=== PATIENT | female | born 1940 | race Caucasian/White ===

== ENCOUNTER 2017-02-11 13:26 | Emergency (ER) | payer MEDICARE, OTHER, MEDICAID ==
[2017-02-11] MEDS ORDERED: Albuterol/Ipratropium 3.0-0.5 MG/3 ML Neb Soln NEB ONE (13:33)
--- NOTE | 2017-02-11 13:35 | EDM.PDOC ---
ED HPI GENERAL MEDICAL PROBLEM - General Chief Complaint: General Stated Complaint: AMBULANCE Time Seen by Provider: 02/11/17 13:30 Source of Information: Reports: Patient, EMS, EMS Notes Reviewed History Limitations: Reports: No Limitations - History of Present Illness INITIAL COMMENTS - FREE TEXT/NARRATIVE: 76 yo white female w/ PMHx. COPD brought by ambulance for SOB and altered mental status Onset: Today Onset Date: 02/11/17 Onset Time: 11:00 Duration: Hour(s): Location: Reports: Chest, Generalized Severity: Moderate Improves with: Reports: None Worsens with: Reports: None Associated Symptoms: Reports: Shortness of Breath Back Pain Score (Numeric/FACES): 3 - Related Data Allergies Allergy/AdvReac Type Severity Reaction Status Date / Time acetaminophen Allergy Cannot Verified 02/11/17 14:16 [From Darvocet-N] Remember codeine Allergy Cannot Verified 02/11/17 14:16 Remember corn Allergy Cannot Verified 02/11/17 14:16 Remember fentanyl Allergy Lightheaded Verified 02/11/17 14:16 ness gabapentin Allergy Cannot Verified 02/11/17 14:16 Remember ibuprofen Allergy Cannot Verified 02/11/17 14:16 Remember levofloxacin [From Levaquin] Allergy Rash Verified 02/11/17 14:16 naproxen Allergy Cannot Verified 02/11/17 14:16 Remember propoxyphene napsylate Allergy Cannot Verified 02/11/17 14:16 [From Darvocet-N] Remember sertraline HCl [From Zoloft] Allergy Cannot Verified 02/11/17 14:16 Remember strawberry Allergy Cannot Verified 02/11/17 14:16 Remember Home Meds: Home Meds Acetaminophen [Tylenol] 650 mg PO Q4H PRN 06/16/14 [History] Bisacodyl [Dulcolax] 10 mg RECTAL DAILY PRN 06/16/14 [History] DULoxetine [Cymbalta] 2 cap PO DAILY 06/16/14 [History] Docusate Sodium [Colace] 200 mg PO BEDTIME 06/16/14 [History] Donepezil HCl [Aricept] 1 tab PO BID 06/16/14 [History] Memantine HCl [Namenda Xr] 28 mg PO BEDTIME 06/16/14 [History] Metoprolol Tartrate 25 mg PO BID 06/16/14 [History] Morphine [MS Contin] 15 mg PO BID 06/16/14 [History] Simethicone 80 mg PO Q6H PRN 06/16/14 [History] buPROPion HCl 100 mg PO DAILY 06/16/14 [History] Furosemide [Lasix] 10 mg PO DAILY 07/04/14 [History] Albuterol/Ipratropium [DuoNeb 3.0-0.5 MG/3 ML] 1 ampule NEB Q4H PRN 05/24/15 [ History] Brinzolamide [Azopt] 1 drop EYEBOTH BID 05/24/15 [History] Dextromethorphan/guaiFENesin [Robitussin Peak Cold DM, Adult] 15 ml PO Q4H PRN 05/24/15 [History] Ferrous Sulfate 1 tab PO DAILY 05/24/15 [History] Calcium Carbonate [Calcium Antacid] 2 tab PO QID 08/09/15 [History] Omeprazole 20 mg PO DAILY 08/09/15 [History] Past Medical History HEENT History: Reports: Cataract, Glaucoma Other HEENT History: CATARACT RIGHT EYE Cardiovascular History: Reports: CAD, Hypertension, Other (See Below) Other Cardiovascular History: DEPENDENT EDEMA; VENOUS INSUFFICENCY PERIPHERAL Respiratory History: Reports: PE, Pneumonia, Recurrent, SOB, Other (See Below) Other Respiratory History: ASPIRATION PNEUMONIA Gastrointestinal History: Reports: Chronic Constipation, Other (See Below) Other Gastrointestinal History: FUNCTIONAL DYPEPSIA Genitourinary History: Reports: None Musculoskeletal History: Reports: Arthritis, Back Pain, Chronic, Other (See Below) Other Musculoskeletal History: CHRONIC R SHOULDER PAIN; POLYARTICULAR ARTHRITIS ; OSTEOMYLITIS L4-5; DISKITIS L4-5; Neurological History: Reports: Alzheimers Disease, Other (See Below) Other Neuro History: DEMENTIA; SEROTONIN SYNDROME; CEREBROVASCULAR DISEASE; INSOMNIA Psychiatric History: Reports: Addiction, Anxiety, Depression, Other (See Below) Other Psychiatric History: OPIATE DEPENDENCE; ADJUSTMENT DISORDER WITH ANXIETY Endocrine/Metabolic History: Reports: None, Osteoporosis Hematologic History: Reports: Anemia, B12 Deficiency, Iron Deficiency Immunologic History: Reports: None Oncologic (Cancer) History: Reports: Breast Dermatologic History: Reports: Cellulitis, Other (See Below) Other Dermatologic History: VENOUS STASIS ULCER - Past Surgical History HEENT Surgical History: Reports: Cataract Surgery, Tonsillectomy Neurological Surgical History: Reports: Lumbar Spine Social & Family History - Tobacco Use Smoking Status *Q: Former Smoker Years of Tobacco use: 21 Used Tobacco, but Quit: Yes Month Tobacco Last Used: 1979 Second Hand Smoke Exposure: No - Alcohol Use Days Per Week of Alcohol Use: 0 - Recreational Drug Use Recreational Drug Use: No - Living Situation & Occupation Living situation: Reports: , Extended Care Facility Occupation: Retired ED ROS GENERAL - Review of Systems Review Of Systems: See Below Constitutional: Reports: No Symptoms HEENT: Reports: No Symptoms Respiratory: Reports: Shortness of Breath, Cough Cardiovascular: Reports: No Symptoms Endocrine: Reports: No Symptoms GI/Abdominal: Reports: No Symptoms : Reports: No Symptoms Musculoskeletal: Reports: No Symptoms Skin: Reports: No Symptoms Neurological: Reports: No Symptoms Psychiatric: Reports: No Symptoms Hematologic/Lymphatic: Reports: No Symptoms Immunologic: Reports: No Symptoms ED EXAM, GENERAL - Physical Exam Exam: See Below Exam Limited By: No Limitations General Appearance: Alert, WD/WN Eye Exam: Bilateral Eye: EOMI, PERRL Ears: Normal External Exam Nose: Normal Inspection Throat/Mouth: Normal Inspection Head: Atraumatic, Normocephalic Neck: Normal Inspection, Supple, Non-Tender Respiratory/Chest: No Respiratory Distress, Rhonchi, Wheezing Cardiovascular: Normal Peripheral Pulses, Regular Rate, Rhythm Peripheral Pulses: 2+: Femoral (L), Femoral (R) GI/Abdominal: Normal Bowel Sounds, Soft Back Exam: Normal Inspection, Full Range of Motion Extremities: Pedal Edema (bilateral) Neurological: Alert, Oriented, CN II-XII Intact Psychiatric: Normal Affect, Normal Mood Skin Exam: Warm, Dry, Intact Lymphatic: No Adenopathy Course - Vital Signs Last Recorded V/S: Last Vital Signs Temp 36.1 C 02/11/17 13:26 Pulse 70 02/11/17 14:15 Resp 16 02/11/17 13:26 BP 120/65 02/11/17 13:26 Pulse Ox 94 L 02/11/17 14:15 - Orders/Labs/Meds Orders: Active Orders 24 hr Category Date Time Status RT Aerosol Therapy [RC] ASDIRECTED Care 02/11/17 13:33 Active Chest 1V Frontal [CR] Urgent Exams 02/11/17 13:31 Taken Sodium Chloride 0.9% [Normal Saline] 250 ml Med 02/11/17 13:45 Active IV ASDIRECTED Medication Orders Sodium Chloride (Normal Saline) 250 mls @ 50 mls/hr IV ASDIRECTED DEE Last Admin: 02/11/17 14:09 Dose: 50 mls/hr Labs: Laboratory Tests 02/11/17 02/11/17 02/11/17 Range/Units 13:39 13:39 13:39 WBC 7.1 (5.0-10.0) 10^3/uL RBC 5.52 H (4.2-5.4) 10^6/uL Hgb 15.9 (12.0-16.0) g/dL Hct 52.0 H (37.0-47.0) % MCV 94.2 (80-100) fL MCH 28.8 (27.0-34.0) pg MCHC 30.6 L (33.0-35.0) g/dL Plt Count 138 L (150-450) 10^3/uL Neut % (Auto) 73.5 (42.2-75.2) % Lymph % (Auto) 13.3 L (20.5-50.1) % [place] % (Auto) 11.5 H (2-8) % Eos % (Auto) 1.3 (1.0-3.0) % Baso % (Auto) 0.4 (0.0-1.0) % D-Dimer, Quantitative < 100 (0-400) ng/mL Sodium 142 (135-145) mmol/L Potassium 3.5 L (3.6-5.0) mmol/L Chloride 94 L (101-111) mmol/L Carbon Dioxide 34.0 H (21.0-31.0) mmol/L Anion Gap 17.5 BUN 16 (7-18) mg/dL Creatinine 0.6 (0.6-1.3) mg/dL Est Cr Clr Drug Dosing 56.40 mL/min Estimated GFR (MDRD) > 60 BUN/Creatinine Ratio 26.66 Glucose 80 (74-105) mg/dL Calcium 8.1 L (8.4-10.2) mg/dl Total Bilirubin 1.2 H (0.2-1.0) mg/dL AST 16 (10-42) IU/L ALT 24 (10-60) IU/L Alkaline Phosphatase 79 (42-121) IU/L Troponin I 0.09 H* (0.00-0.02) ng/ml Total Protein 6.0 L (6.7-8.2) g/dl Albumin 3.3 (3.2-5.5) g/dl Globulin 2.7 Albumin/Globulin Ratio 1.22 Urine Color (YELLOW) Urine Appearance (CLEAR) Urine pH (5.0-9.0) Ur Specific [place] (1.005-1.030) Urine Protein (NEGATIVE) Urine Glucose (UA) (NEGATIVE) Urine Ketones (NEGATIVE) Urine Occult Blood (NEGATIVE) Urine Nitrite (NEGATIVE) Urine Bilirubin (NEGATIVE) Urine Urobilinogen (0.2-1.0) mg/dL Ur Leukocyte Esterase (NEGATIVE) Urine RBC /HPF Urine WBC (0-5/HPF) /HPF Ur Epithelial Cells /HPF Amorphous Sediment (0/HPF) /HPF Urine Bacteria (0-FEW/HPF) /HPF Urine Mucus /LPF 02/11/17 Range/Units 14:03 WBC (5.0-10.0) 10^3/uL RBC (4.2-5.4) 10^6/uL Hgb (12.0-16.0) g/dL Hct (37.0-47.0) % MCV (80-100) fL MCH (27.0-34.0) pg MCHC (33.0-35.0) g/dL Plt Count (150-450) 10^3/uL Neut % (Auto) (42.2-75.2) % Lymph % (Auto) (20.5-50.1) % [place] % (Auto) (2-8) % Eos % (Auto) (1.0-3.0) % Baso % (Auto) (0.0-1.0) % D-Dimer, Quantitative (0-400) ng/mL Sodium (135-145) mmol/L Potassium (3.6-5.0) mmol/L Chloride (101-111) mmol/L Carbon Dioxide (21.0-31.0) mmol/L Anion Gap BUN (7-18) mg/dL Creatinine (0.6-1.3) mg/dL Est Cr Clr Drug Dosing mL/min Estimated GFR (MDRD) BUN/Creatinine Ratio Glucose (74-105) mg/dL Calcium (8.4-10.2) mg/dl Total Bilirubin (0.2-1.0) mg/dL AST (10-42) IU/L ALT (10-60) IU/L Alkaline Phosphatase (42-121) IU/L Troponin I (0.00-0.02) ng/ml Total Protein (6.7-8.2) g/dl Albumin (3.2-5.5) g/dl Globulin Albumin/Globulin Ratio Urine Color Dark yellow (YELLOW) Urine Appearance Slightly cloudy (CLEAR) Urine pH 5.5 (5.0-9.0) Ur Specific [place] >= 1.030 (1.005-1.030) Urine Protein >=300 H (NEGATIVE) Urine Glucose (UA) Negative (NEGATIVE) Urine Ketones 40 H (NEGATIVE) Urine Occult Blood Negative (NEGATIVE) Urine Nitrite Negative (NEGATIVE) Urine Bilirubin Large H (NEGATIVE) Urine Urobilinogen 1.0 (0.2-1.0) mg/dL Ur Leukocyte Esterase Negative (NEGATIVE) Urine RBC 0-5 /HPF Urine WBC 0-5 (0-5/HPF) /HPF Ur Epithelial Cells Moderate H /HPF Amorphous Sediment Many H (0/HPF) /HPF Urine Bacteria Many H (0-FEW/HPF) /HPF Urine Mucus Many H /LPF Meds: Medications Generic Name Dose Route Start Last Admin Trade Name Freq PRN Reason Stop Dose Admin Sodium Chloride 250 mls @ 50 mls/hr 02/11/17 13:45 02/11/17 14:09 Normal Saline IV 50 mls/hr ASDIRECTED DEE Administration Discontinued Medications Generic Name Dose Route Start Last Admin Trade Name Freq PRN Reason Stop Dose Admin Albuterol/Ipratropium 3 ml 02/11/17 13:33 02/11/17 14:09 Duoneb 3.0-0.5 Mg/3 Ml NEB 02/11/17 13:34 3 ml ONETIME ONE Administration Aspirin 324 mg 02/11/17 14:44 02/11/17 14:46 Aspirin PO 02/11/17 14:45 324 mg ONETIME ONE Administration Aspirin Confirm 02/11/17 14:43 02/11/17 14:46 Aspirin Administered 02/11/17 14:44 Not Given Dose 324 mg .ROUTE .STK-MED ONE Departure - Departure Time of Disposition: 15:12 Disposition: DC/Tfer to Other 70 Clinical Impression: Non-STEMI (non-ST elevated myocardial infarction) - Discharge Information Forms: ED Department Discharge, Interfacility Transfer EMTBHASK[facility] - My Orders Last 24 Hours: My Active Orders 02/11/17 13:31 Chest 1V Frontal [CR] Urgent 02/11/17 13:33 RT Aerosol Therapy [RC] ASDIRECTED 02/11/17 13:45 Sodium Chloride 0.9% [Normal Saline] 250 ml IV ASDIRECTED - Assessment/Plan Last 24 Hours: My Active Orders 02/11/17 13:31 Chest 1V Frontal [CR] Urgent 02/11/17 13:33 RT Aerosol Therapy [RC] ASDIRECTED 02/11/17 13:45 Sodium Chloride 0.9% [Normal Saline] 250 ml IV ASDIRECTED
[2017-02-11 13:42] VITALS: BP 120/65
[2017-02-11] MEDS ORDERED: Sodium Chloride 0.9% 250 ML IV SCH (13:45)
[2017-02-11 14:06] LABS: CHLORIDE,CL 94 mmol/L (101-111); SODIUM,NA 142 mmol/L (135-145)
[2017-02-11] MEDS ORDERED: Aspirin 81 MG Tab.Chew ONE (14:43)
[2017-02-11] MEDS ORDERED: Aspirin 81 MG Tab.Chew PO ONE (14:44)
--- NOTE | 2017-02-14 09:19 | EKG ---
02/11/2017- MARY COSTA I reviewed the EKG and agree with the machine's reading. [facility] /[id number]
== END 2017-02-11 15:15 | disposition other institution (70) ==
LOC: DL.ED 13:26
DX: I21.4 Non-ST elevation (NSTEMI) myocardial infarction (principal); I10 Essential (primary) hypertension; I25.10 Atherosclerotic heart disease of native coronary artery without angina pectoris; M19.90 Unspecified osteoarthritis, unspecified site; G30.9 Alzheimer's disease, unspecified; F02.80 Dementia in other diseases classified elsewhere, unspecified severity, without behavioral disturbance, psychotic disturbance, mood disturbance, and anxiety; F32.9 Major depressive disorder, single episode, unspecified; M81.0 Age-related osteoporosis without current pathological fracture; Z86.711 Personal history of pulmonary embolism; Z87.01 Personal history of pneumonia (recurrent); Z85.3 Personal history of malignant neoplasm of breast; Z98.49 Cataract extraction status, unspecified eye; Z98.890 Other specified postprocedural states; Z87.891 Personal history of nicotine dependence; Z79.899 Other long term (current) drug therapy; Z88.1 Allergy status to other antibiotic agents; Z88.6 Allergy status to analgesic agent; Z88.8 Allergy status to other drugs, medicaments and biological substances; Z88.5 Allergy status to narcotic agent; Z91.018 Allergy to other foods
CPT/HCPCS: 36415; 71010; 80053; 81001; 84484; 85025; 85379; 94640; 96360; 99283; A9270; J7050

== ENCOUNTER 2017-06-02 23:54 | Emergency (ER) | payer MEDICARE, OTHER, MEDICAID ==
[~2017-06-02 23:54] MED LIST: Albuterol 0.083% 2.5 MG/3 ML Neb Soln NEB ONE; Furosemide 40 MG/4 ML VIAL IVPUSH ONE; methylPREDNISolone Sodium Succinate 125 MG/2 ML SDV IVPUSH ONE
[2017-06-03 00:07] VITALS: BP 180/114
[2017-06-03] MEDS ORDERED: cefTRIAXone 1 GM Vial IVPUSH ONE (00:31)
[2017-06-03 00:41] LABS: O2 DELIVERY DEVICE NASAL CANNULA
--- NOTE | 2017-06-03 00:42 | EDM.PDOC ---
ED HPI GENERAL MEDICAL PROBLEM - General Chief Complaint: Respiratory Problem Stated Complaint: IN BY AMBULANCE Time Seen by Provider: 06/02/17 23:55 Source of Information: Reports: EMS, [facility] Records History Limitations: Reports: Respiratory Distress - History of Present Illness INITIAL COMMENTS - FREE TEXT/NARRATIVE: ED via [facility] from [facility]. with respiratory distress. Patient hx COPD, recently started on Doxycycline on 05/29/17. On arrival NRB 10L diaphoretic agonal respirations, DNR per [facility] records. Onset: Today - Related Data Allergies Allergy/AdvReac Type Severity Reaction Status Date / Time acetaminophen Allergy Cannot Verified 06/03/17 01:38 [From Darvocet-N] Remember codeine Allergy Cannot Verified 06/03/17 01:38 Remember corn Allergy Cannot Verified 06/03/17 01:38 Remember fentanyl Allergy Lightheaded Verified 06/03/17 01:38 ness gabapentin Allergy Cannot Verified 06/03/17 01:38 Remember ibuprofen Allergy Cannot Verified 06/03/17 01:38 Remember levofloxacin [From Levaquin] Allergy Rash Verified 06/03/17 01:38 naproxen Allergy Cannot Verified 06/03/17 01:38 Remember propoxyphene napsylate Allergy Cannot Verified 06/03/17 01:38 [From Darvocet-N] Remember sertraline HCl [From Zoloft] Allergy Cannot Verified 06/03/17 01:38 Remember strawberry Allergy Cannot Verified 06/03/17 01:38 Remember Home Meds: Home Meds Acetaminophen [Tylenol] 650 mg PO Q4H PRN 06/16/14 [History] Bisacodyl [Dulcolax] 10 mg RECTAL DAILY PRN 06/16/14 [History] DULoxetine [Cymbalta] 2 cap PO DAILY 06/16/14 [History] Donepezil HCl [Aricept] 1 tab PO BID 06/16/14 [History] Metoprolol Tartrate 25 mg PO BID 06/16/14 [History] Morphine [MS Contin] 15 mg PO BID 06/16/14 [History] Simethicone 80 mg PO Q6H PRN 06/16/14 [History] Furosemide [Lasix] 10 mg PO DAILY 07/04/14 [History] Albuterol/Ipratropium [DuoNeb 3.0-0.5 MG/3 ML] 1 ampule NEB Q4H PRN 05/24/15 [ History] Brinzolamide [Azopt] 1 drop EYEBOTH BID 05/24/15 [History] Ferrous Sulfate 1 tab PO DAILY 05/24/15 [History] Omeprazole 20 mg PO DAILY 08/09/15 [History] Budesonide [Pulmicort] 1 ampule INH BID 02/11/17 [History] Dextran 70/Hypromellose [Artificial Tears] 1 drop EYEBOTH TID 02/11/17 [History] Formoterol Fumarate [Perforomist] 2 puff IH BID 02/11/17 [History] Memantine HCl [Namenda XR] 28 mg PO DAILY 02/11/17 [History] Polyethylene Glycol [Polyox Wsr-301] 17 gm PO DAILY PRN 02/11/17 [History] Aspirin [Aspirin EC] 325 mg 06/03/17 [History] Doxycycline Monohydrate [Doxycycline Monohydrate] 100 mg 06/03/17 [History] LORazepam [Ativan] 1 mg 06/03/17 [History] Sennosides/Docusate Sodium [Senokot-S Tablet] 3 tab 06/03/17 [History] Past Medical History HEENT History: Reports: Cataract, Glaucoma Other HEENT History: CATARACT RIGHT EYE Cardiovascular History: Reports: CAD, Hypertension, Other (See Below) Other Cardiovascular History: DEPENDENT EDEMA; VENOUS INSUFFICENCY PERIPHERAL Respiratory History: Reports: PE, Pneumonia, Recurrent, SOB, Other (See Below) Other Respiratory History: ASPIRATION PNEUMONIA Gastrointestinal History: Reports: Chronic Constipation, Other (See Below) Other Gastrointestinal History: FUNCTIONAL DYPEPSIA Genitourinary History: Reports: None 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 Musculoskeletal History: Reports: Arthritis, Back Pain, Chronic, Other (See Below) Other Musculoskeletal History: CHRONIC R SHOULDER PAIN; POLYARTICULAR ARTHRITIS ; OSTEOMYLITIS L4-5; DISKITIS L4-5; Neurological History: Reports: Alzheimers Disease, Other (See Below) Other Neuro History: DEMENTIA; SEROTONIN SYNDROME; CEREBROVASCULAR DISEASE; INSOMNIA Psychiatric History: Reports: Addiction, Anxiety, Depression, Other (See Below) Other Psychiatric History: OPIATE DEPENDENCE; ADJUSTMENT DISORDER WITH ANXIETY Endocrine/Metabolic History: Reports: Osteoporosis Hematologic History: Reports: Anemia, B12 Deficiency, Iron Deficiency Immunologic History: Reports: None Oncologic (Cancer) History: Reports: Breast Dermatologic History: Reports: Cellulitis, Other (See Below) Other Dermatologic History: VENOUS STASIS ULCER - Infectious Disease History Infectious Disease History: Reports: None - Past Surgical History HEENT Surgical History: Reports: Cataract Surgery, Tonsillectomy Neurological Surgical History: Reports: Lumbar Spine Social & Family History - Family History Family Medical History: Noncontributory - Tobacco Use Smoking Status *Q: Former Smoker Years of Tobacco use: 21 Used Tobacco, but Quit: Yes Month Tobacco Last Used: 1979 Second Hand Smoke Exposure: No - Caffeine Use Caffeine Use: Reports: Coffee - Alcohol Use Days Per Week of Alcohol Use: 0 - Recreational Drug Use Recreational Drug Use: No - Living Situation & Occupation Living situation: Reports: , Extended Care Facility Occupation: Retired ED ROS GENERAL - Review of Systems Review Of Systems: Unable To Obtain ED EXAM, GENERAL - Physical Exam Exam: See Below Exam Limited By: No Limitations General Appearance: Obtunded, Severe Distress, Thin Eye Exam: Bilateral Eye: EOMI, PERRL (sluggish) Ears: Normal External Exam, Normal TMs Nose: Normal Inspection Head: Atraumatic, Normocephalic Respiratory/Chest: Respiratory Distress, Decreased Breath Sounds, Rhonchi, Accessory Muscle Use Cardiovascular: Regular Rate, Rhythm, JVD. No: No Edema (3+) GI/Abdominal: Normal Bowel Sounds, Soft Back Exam: Normal Inspection, Full Range of Motion Neurological: Slow to Respond Skin Exam: Intact, Diaphoretic, Pallor Course - Vital Signs Last Recorded V/S: Last Vital Signs Temp Pulse 102 H 06/02/17 23:55 Resp 23 H 06/02/17 23:55 BP 180/114 H 06/02/17 23:55 Pulse Ox 100 06/02/17 23:55 - Orders/Labs/Meds Labs: Laboratory Tests 06/02/17 06/02/17 06/02/17 Range/Units 00:05 00:05 00:05 WBC 8.4 (5.0-10.0) 10^3/uL RBC 5.34 (4.2-5.4) 10^6/uL Hgb 15.4 (12.0-16.0) g/dL Hct 50.9 H (37.0-47.0) % MCV 95.3 (80-100) fL MCH 28.8 (27.0-34.0) pg MCHC 30.3 L (33.0-35.0) g/dL Plt Count 192 (150-450) 10^3/uL Neut % (Auto) 87.4 H (42.2-75.2) % Lymph % (Auto) 6.3 L (20.5-50.1) % [place] % (Auto) 5.7 (2-8) % Eos % (Auto) 0.4 L (1.0-3.0) % Baso % (Auto) 0.2 (0.0-1.0) % PT 10.2 D (9.0-12.0) SEC INR 1.0 (0.9-1.2) D-Dimer, Quantitative 373 (0-400) ng/mL ABG pH (7.35-7.45) ABG pCO2 (35-45) mmHg ABG pO2 (70-100) mmHg ABG HCO3 (22-26) mmol/L ABG O2 Saturation (95-100) % ABG Base Excess ((-2)-(+3)) mmol/L Ryan Test O2 Delivery Device Sodium (135-145) mmol/L Potassium (3.6-5.0) mmol/L Chloride (101-111) mmol/L Carbon Dioxide (21.0-31.0) mmol/L Anion Gap BUN (7-18) mg/dL Creatinine (0.6-1.3) mg/dL Est Cr Clr Drug Dosing Estimated GFR (MDRD) BUN/Creatinine Ratio Glucose (74-105) mg/dL Lactic Acid (0.5-2.2) mmol/L Calcium (8.4-10.2) mg/dl Total Bilirubin (0.2-1.0) mg/dL AST (10-42) IU/L ALT (10-60) IU/L Alkaline Phosphatase (42-121) IU/L CK-MB (CK-2) 4.00 (0.4-4.7) ng/mL Troponin I (0.00-0.02) ng/ml B-Natriuretic Peptide (0-100) pg/ml Total Protein (6.7-8.2) g/dl Albumin (3.2-5.5) g/dl Globulin Albumin/Globulin Ratio Urine Color (YELLOW) Urine Appearance (CLEAR) Urine pH (5.0-9.0) Ur Specific [place] (1.005-1.030) Urine Protein (NEGATIVE) Urine Glucose (UA) (NEGATIVE) Urine Ketones (NEGATIVE) Urine Occult Blood (NEGATIVE) Urine Nitrite (NEGATIVE) Urine Bilirubin (NEGATIVE) Urine Urobilinogen (0.2-1.0) mg/dL Ur Leukocyte Esterase (NEGATIVE) Urine RBC /HPF Urine WBC (0-5/HPF) /HPF Ur Epithelial Cells /HPF Urine Bacteria (0-FEW/HPF) /HPF 06/02/17 06/03/17 06/03/17 Range/Units 00:05 00:05 00:05 WBC (5.0-10.0) 10^3/uL RBC (4.2-5.4) 10^6/uL Hgb (12.0-16.0) g/dL Hct (37.0-47.0) % MCV (80-100) fL MCH (27.0-34.0) pg MCHC (33.0-35.0) g/dL Plt Count (150-450) 10^3/uL Neut % (Auto) (42.2-75.2) % Lymph % (Auto) (20.5-50.1) % [place] % (Auto) (2-8) % Eos % (Auto) (1.0-3.0) % Baso % (Auto) (0.0-1.0) % PT (9.0-12.0) SEC INR (0.9-1.2) D-Dimer, Quantitative (0-400) ng/mL ABG pH (7.35-7.45) ABG pCO2 (35-45) mmHg ABG pO2 (70-100) mmHg ABG HCO3 (22-26) mmol/L ABG O2 Saturation (95-100) % ABG Base Excess ((-2)-(+3)) mmol/L Ryan Test O2 Delivery Device Sodium 139 (135-145) mmol/L Potassium 4.8 (3.6-5.0) mmol/L Chloride 98 L (101-111) mmol/L Carbon Dioxide 34.0 H (21.0-31.0) mmol/L Anion Gap 11.8 BUN 17 (7-18) mg/dL Creatinine 0.4 L (0.6-1.3) mg/dL Est Cr Clr Drug Dosing TNP Estimated GFR (MDRD) > 60 BUN/Creatinine Ratio 42.50 Glucose 148 H (74-105) mg/dL Lactic Acid 1.1 (0.5-2.2) mmol/L Calcium 8.7 (8.4-10.2) mg/dl Total Bilirubin 0.6 (0.2-1.0) mg/dL AST 175 H (10-42) IU/L ALT 87 H (10-60) IU/L Alkaline Phosphatase 178 H (42-121) IU/L CK-MB (CK-2) (0.4-4.7) ng/mL Troponin I 0.08 H* (0.00-0.02) ng/ml B-Natriuretic Peptide 379 H (0-100) pg/ml Total Protein 7.5 (6.7-8.2) g/dl Albumin 3.6 (3.2-5.5) g/dl Globulin 3.9 Albumin/Globulin Ratio 0.92 Urine Color (YELLOW) Urine Appearance (CLEAR) Urine pH (5.0-9.0) Ur Specific [place] (1.005-1.030) Urine Protein (NEGATIVE) Urine Glucose (UA) (NEGATIVE) Urine Ketones (NEGATIVE) Urine Occult Blood (NEGATIVE) Urine Nitrite (NEGATIVE) Urine Bilirubin (NEGATIVE) Urine Urobilinogen (0.2-1.0) mg/dL Ur Leukocyte Esterase (NEGATIVE) Urine RBC /HPF Urine WBC (0-5/HPF) /HPF Ur Epithelial Cells /HPF Urine Bacteria (0-FEW/HPF) /HPF 06/03/17 06/03/17 06/03/17 Range/Units 00:27 00:33 01:38 WBC (5.0-10.0) 10^3/uL RBC (4.2-5.4) 10^6/uL Hgb (12.0-16.0) g/dL Hct (37.0-47.0) % MCV (80-100) fL MCH (27.0-34.0) pg MCHC (33.0-35.0) g/dL Plt Count (150-450) 10^3/uL Neut % (Auto) (42.2-75.2) % Lymph % (Auto) (20.5-50.1) % [place] % (Auto) (2-8) % Eos % (Auto) (1.0-3.0) % Baso % (Auto) (0.0-1.0) % PT (9.0-12.0) SEC INR (0.9-1.2) D-Dimer, Quantitative (0-400) ng/mL ABG pH 7.24 L 7.29 L (7.35-7.45) ABG pCO2 83 H* 75 H* (35-45) mmHg ABG pO2 60 L 67 L (70-100) mmHg ABG HCO3 34.0 H 35.0 H (22-26) mmol/L ABG O2 Saturation 90 L 95 (95-100) % ABG Base Excess 4 H 6 H ((-2)-(+3)) mmol/L Ryan Test Y Y O2 Delivery Device Nasal cannula Bipap Sodium (135-145) mmol/L Potassium (3.6-5.0) mmol/L Chloride (101-111) mmol/L Carbon Dioxide (21.0-31.0) mmol/L Anion Gap BUN (7-18) mg/dL Creatinine (0.6-1.3) mg/dL Est Cr Clr Drug Dosing Estimated GFR (MDRD) BUN/Creatinine Ratio Glucose (74-105) mg/dL Lactic Acid (0.5-2.2) mmol/L Calcium (8.4-10.2) mg/dl Total Bilirubin (0.2-1.0) mg/dL AST (10-42) IU/L ALT (10-60) IU/L Alkaline Phosphatase (42-121) IU/L CK-MB (CK-2) (0.4-4.7) ng/mL Troponin I (0.00-0.02) ng/ml B-Natriuretic Peptide (0-100) pg/ml Total Protein (6.7-8.2) g/dl Albumin (3.2-5.5) g/dl Globulin Albumin/Globulin Ratio Urine Color Yellow (YELLOW) Urine Appearance Cloudy (CLEAR) Urine pH 5.0 (5.0-9.0) Ur Specific [place] >= 1.030 (1.005-1.030) Urine Protein 100 H (NEGATIVE) Urine Glucose (UA) Negative (NEGATIVE) Urine Ketones Negative (NEGATIVE) Urine Occult Blood Trace-intact H (NEGATIVE) Urine Nitrite Negative (NEGATIVE) Urine Bilirubin Negative (NEGATIVE) Urine Urobilinogen 1.0 (0.2-1.0) mg/dL Ur Leukocyte Esterase Negative (NEGATIVE) Urine RBC 0-5 /HPF Urine WBC 0-5 (0-5/HPF) /HPF Ur Epithelial Cells Moderate H /HPF Urine Bacteria Many H (0-FEW/HPF) /HPF Meds: Medications Discontinued Medications Generic Name Dose Route Start Last Admin Trade Name Freq PRN Reason Stop Dose Admin Albuterol 2.5 mg 06/02/17 23:48 Proventil Neb Soln NEB 06/02/17 23:49 ONETIME ONE Ceftriaxone Sodium 1 gm 06/03/17 00:31 06/03/17 00:43 Rocephin IVPUSH 06/03/17 00:32 1 gm ONETIME ONE Administration Furosemide 40 mg 06/02/17 23:48 06/03/17 00:08 Lasix IVPUSH 06/02/17 23:49 40 mg NOW ONE Administration Doxycycline Hyclate 100 mg/ 100 mls @ 100 mls/hr 06/03/17 01:12 06/03/17 02: 26 Sodium Chloride IV 06/03/17 02:11 100 mls/hr ONETIME ONE Administration Methylprednisolone Sodium Succinate 125 mg 06/02/17 23:48 06/03/17 00:09 Solu-Medrol IVPUSH 06/02/17 23:49 125 mg ONETIME ONE Administration - Radiology Interpretation Free Text/Narrative:: CXR large right hilar mass increased in size with obstructive Right upper lobe pneumonia - Re-Assessments/Exams Free Text/Narrative Re-Assessment/Exam: 06/03/17 04:06 Son here, now aware of patients DNR order at [facility], notes no prior knowledge. States he is no longer POA as patient had some confusion but improved and she took back full control. RT here patient placed on BiPap. Tolerating well. TC consult Dr Ingram accepting of patient for further eval and management. right upper lobe pneumonia. Tx via [facility] 06/03/17 04:13 Departure - Departure Time of Disposition: 02:45 Disposition: DC/Tfer to Acute Hospital 02 Condition: Critical, Undetermined Clinical Impression: Non-STEMI (non-ST elevated myocardial infarction), Acute respiratory acidosis CHF (congestive heart failure) Qualifiers: Congestive heart failure type: unspecified congestive heart failure type Congestive heart failure chronicity: unspecified congestive heart failure chronicity Qualified Code(s): I50.9 - Heart failure, unspecified - Discharge Information Referrals: PCP,Unobtain [Primary Care Provider] - Forms: ED Department Discharge
[2017-06-03 00:45] LABS: PCO2 ARTERIAL 83 mmHg (35-45)
[2017-06-03 00:46] LABS: ALLEN TEST Y; BASE EXCESS ARTERIAL 4 mmol/L ((-2)-(+3)); O2 SATURATION ARTERIAL 90 % (95-100); PO2 ARTERIAL 60 mmHg (70-100)
[2017-06-03 00:54] LABS: SODIUM,NA 139 mmol/L (135-145)
[2017-06-03 00:55] LABS: ANION GAP 11.8; CHLORIDE,CL 98 mmol/L (101-111)
[2017-06-03] MEDS ORDERED: Doxycycline 100 MG in Sodium Chloride 0.9% 100 ML IV ONE (01:12)
[2017-06-03 01:45] LABS: O2 DELIVERY DEVICE BIPAP
[2017-06-03 01:50] LABS: PCO2 ARTERIAL 75 mmHg (35-45)
[2017-06-03 01:51] LABS: ALLEN TEST Y; BASE EXCESS ARTERIAL 6 mmol/L ((-2)-(+3)); O2 SATURATION ARTERIAL 95 % (95-100); PO2 ARTERIAL 67 mmHg (70-100)
--- NOTE | 2017-06-03 13:11 | EKG ---
06/03/2017 - MARY COSTA - This 12-lead EKG shows normal sinus rhythm with a ventricular rate of 98. Normal axis, occasional PAC. No acute ST-segment or T-wave changes. [facility] /[id number]
== END 2017-06-03 02:48 ==
LOC: DL.ED 23:54
DX: I21.4 Non-ST elevation (NSTEMI) myocardial infarction (principal); I11.0 Hypertensive heart disease with heart failure; I50.9 Heart failure, unspecified; E87.2 Acidosis; J18.9 Pneumonia, unspecified organism; J44.9 Chronic obstructive pulmonary disease, unspecified; Z88.6 Allergy status to analgesic agent; Z88.8 Allergy status to other drugs, medicaments and biological substances; Z79.899 Other long term (current) drug therapy; Z79.82 Long term (current) use of aspirin; Z87.891 Personal history of nicotine dependence; Z88.1 Allergy status to other antibiotic agents; Z88.5 Allergy status to narcotic agent
CPT/HCPCS: 36415; 36600; 71045; 80053; 81001; 82553; 82803; 83605; 83880; 84484; 85025; 85379; 85610; 87040; 87086; 93005; 93010; 96365; 96375; 99285; J0696; J1940; J2930; J7050